=== PATIENT | male | born 2000 | race Two or more races ===

== ENCOUNTER 2020-04-21 07:57 | Emergency (ER) | payer OTHER ==
[~2020-04-21] VITALS: Ht 198.1 cm; Wt 130.8 kg
[2020-04-21] MEDS ORDERED: DIPH,PERTUSS(ACELL),TET VAC/PF 0.5 ML SYRINGE. VAX IM ONE (08:30)
[2020-04-21] MEDS ORDERED: ONDANSETRON PF 4 MG/2 ML VIAL. IVP ONE (08:30)
[2020-04-21] MEDS ORDERED: MORPHINE SULFATE 4 MG/ML VIAL. IV ONE ×2 (08:30→09:45)
--- NOTE | 2020-04-21 08:37 | RAD ---
EXAM: Left hand, 3 views. HISTORY: Blunt trauma. COMPARISON: None. FINDINGS: 3 views of the left hand are obtained. There is bandage material overlying the distal aspects of the third and fourth fingers. This limits evaluation of bony detail. There is slight amputation of the justus of the third and fourth distal phalanges and overlying soft tissues. No convincing radiodense foreign body is seen. IMPRESSION: Partial amputation of the distal justus of the third and fourth distal phalanges and overlying soft tissues. Electronically signed by: Liz Posada MD (04/21/2020 8:34 AM) [id number]
--- NOTE | 2020-04-21 08:40 | PHYS DOC ---
Past Medical History Past Medical History: No Pertinent History Past Surgical History: No Surgical History Smoking Status: Current Every Day Smoker Alcohol Use: Occasionally General Adult EDM: Chief Complaint: TRAUMA ALERT HPI: HPI: Patient is a 20 year old male who presented to ER today for evaluation of left hand injury. Patient said he was trying to lift a metal TRAIN RAIL when it fell onto his left hand, crushed the tips of the 3rd and 4th fingers off. Patient said it happened at work. Patient initially told triage nurse with a different story but later confirmed that it happened at work. He is not up to date to tetanus vaccination status. His last meal was at 6 am today. He denied any other injury. NO fever, no cough. Review of Systems: Review of Systems: Constitutional: Denies fever or chills. [] Eyes: Denies change in visual acuity. [] HENT: Denies nasal congestion or sore throat. [] Respiratory: Denies cough or shortness of breath. [] Cardiovascular: Denies chest pain or edema. [] GI: Denies abdominal pain, nausea, vomiting, bloody stools or diarrhea. [] : Denies dysuria. [] Musculoskeletal: positive for left fingers injury. [] Integument: Denies rash. [] Neurologic: Denies headache, focal weakness or sensory changes. [] Endocrine: Denies polyuria or polydipsia. [] Lymphatic: Denies swollen glands. [] Psychiatric: Denies depression or anxiety. [] Heart Score: Risk Factors: Risk Factors: DM, Current or recent (<one month) smoker, HTN, HLP, family history of CAD, obesity. Risk Scores: Score 0 - 3: 2.5% MACE over next 6 weeks - Discharge Home Score 4 - 6: 20.3% MACE over next 6 weeks - Admit for Clinical Observation Score 7 - 10: 72.7% MACE over next 6 weeks - Early Invasive Strategies Current Medications: Current Medications Medications (Trade) Dose Ordered Sig/Kyrie Start Time Stop Time Status Last Admin Dose Admin Cefazolin Sodium/ Dextrose 50 ml @ 100 mls/hr 1X ONCE 04/21/20 08:30 04/21/20 08:59 04/21/20 08:38 100 MLS/HR Diphtheria/ Tetanus/Acell Pertussis (ADACEL TDap SYRINGE) 0.5 ml ONCE ONCE 04/21/20 08:30 04/21/20 08:31 DC Morphine Sulfate (Morphine Sulfate) 4 mg 1X ONCE 04/21/20 08:30 04/21/20 08:31 DC 04/21/20 08:37 4 MG Ondansetron HCl (Zofran) 4 mg 1X ONCE 04/21/20 08:30 04/21/20 08:31 DC 04/21/20 08:38 4 MG Allergies: Allergies: Allergies Coded Allergies Type Severity Reaction Last Updated Verified No Known Drug Allergies 04/21/20 No Physical Exam: PE: Constitutional: Well developed, well nourished, no acute distress, non-toxic appearance. [] HENT: Normocephalic, atraumatic, bilateral external ears normal, oropharynx moist, no oral exudates, nose normal. [] Eyes: PERRLA, EOMI, conjunctiva normal, no discharge. [] Neck: Normal range of motion, no tenderness, supple, no stridor. [] Cardiovascular:Heart rate regular rhythm, no murmur [] Lungs & Thorax: Bilateral breath sounds clear to auscultation [] Abdomen: Bowel sounds normal, soft, no tenderness, no masses, no pulsatile masses. [] Skin: Warm, dry, no erythema, no rash. [] Back: No tenderness, no CVA tenderness. [] Extremities: partial amputation of tips of left 3rd and 4th fingers, FINGERNAILS WERE GONE, HALF OF THE TIP OF FINGERS WERE AMPUTATED, with tissue contused, pulsating bleeding. NO TENDON INJURY. Neurologic: Alert and oriented X 3, normal motor function, normal sensory function, no focal deficits noted. [] Psychologic: Affect normal, judgement normal, mood normal. [] Current Patient Data: Vital Signs: Vital Signs Date Time Temp Pulse Resp B/P (MAP) Pulse Ox O2 Delivery O2 Flow Rate FiO2 04/21/20 08:10 98.2 88 16 158/98 (118) 16 Room Air 98.2 EKG: EKG: [] Radiology/Procedures: Radiology/Procedures: [][facility] [address] [place] [address] IMAGING REPORT Signed PATIENT: LUI GRAHAM ACCOUNT: [id number] : 2000 LOCATION: ER AGE: 20 SEX: M EXAM STATUS: PRE ER ORD. PHYSICIAN: NGHIA FLEMING DO REASON: car parts fell onto left hand PROCEDURE: HAND LEFT 3V EXAM: Left hand, 3 views. HISTORY: Blunt trauma. COMPARISON: None. FINDINGS: 3 views of the left hand are obtained. There is bandage material overlying the distal aspects of the third and fourth fingers. This limits evaluation of bony detail. There is slight amputation of the justus of the third and fourth distal phalanges and overlying soft tissues. No convincing radiodense foreign body is seen. IMPRESSION: Partial amputation of the distal justus of the third and fourth distal phalanges and overlying soft tissues. Electronically signed by: Liz Cardoso MD (04/21/2020 8:34 AM) [id number] DICTATED and SIGNED BY: LIZ CARDOSO MD DATE: 04/21/20 0834 Course & Med Decision Making: Course & Med Decision Making Pertinent Labs and Imaging studies reviewed. (See chart for details) Patient is a 20-year-old male who sustained a crush injury to his left distal fourth and fifth fingers with partial amputation of the tip of the fourth and fifth fingers, open fracture. The wound was still bleeding, he was wrapped with gauze and Coban, he will need to be transferred to [facility] for evaluation by hand surgeon. Patient was given tetanus vaccination, 2 g Ancef IV, morphine for pain. Patient was accepted by Dr. Livingston. Patient will be transferred to [facility] ER by private vehicle, his girlfriend will take him there. Robert Disclaimer: Robert Disclaimer: This electronic medical record was generated, in whole or in part, using a voice recognition dictation system. Departure Departure Impression: Primary Impression: Crushing injury of finger of left hand Additional Impression: Open fracture of finger of left hand Disposition: 02 TRANSFER [facility] Condition: STABLE (transferred to [facility], ACCEPTED BY DR. LIVINGSTON) Justicifation of Admission Dx: Justifications for Admission: Justification of Admission Dx: N/A NGHIA FLEMING DO Apr 21, 2020 08:40
[2020-04-21] MEDS ORDERED: BUPIVACAINE MPF 0.5% 30 ML VIAL. INJ ONE (09:00)
[2020-04-21 10:20] VITALS: BP 154/93
== END 2020-04-21 10:29 | disposition short-term general hospital (02) ==
LOC: ER 07:57
DX: S62.633B Displaced fracture of distal phalanx of left middle finger, initial encounter for open fracture (principal); S62.635B Displaced fracture of distal phalanx of left ring finger, initial encounter for open fracture; S67.195A Crushing injury of left ring finger, initial encounter; S67.197A Crushing injury of left little finger, initial encounter; F17.200 Nicotine dependence, unspecified, uncomplicated; W20.8XXA Other cause of strike by thrown, projected or falling object, initial encounter; Y93.89 Activity, other specified; Y92.89 Other specified places as the place of occurrence of the external cause; Y99.8 Other external cause status
CPT/HCPCS: 73130; 90471; 90715; 96365; 96372; 96375; 96376; 99285; J0696; J2270; J2405; J3490